=== PATIENT | male | born 1950 | race Caucasian/White ===

== ENCOUNTER 2023-06-12 09:11 | Day surgery (SDC) | payer MEDICARE, OTHER ==
--- NOTE | 2023-06-12 09:22 | HP ---
DATE OF SURGERY: 06/12/2023 HISTORY OF PRESENT ILLNESS: The patient is a 73-year-old with polyps in need of follow up screening colonoscopy. Family history negative for colon cancer. No bloody stools. PAST MEDICAL HISTORY: Macular degeneration. Hypertension. Asbestosis in the past. PAST SURGICAL HISTORY: Tonsillectomy. Skin cancer removed. Craniotomy for meningioma. Colonoscopy. Dupuytren's contracture. MEDICATIONS: Losartan/hydrochlorothiazide, cetirizine, atorvastatin, amlodipine. ALLERGIES: NKDA. FAMILY HISTORY: Negative for colon cancer. SOCIAL HISTORY: No smoking. Occasional alcohol use. REVIEW OF SYSTEMS: Fourteen systems reviewed. No chest pain or palpitations. Other systems negative or noncontributory as above and per preadmission questionnaire. PHYSICAL EXAMINATION: Height 6'4". BMI 32. GENERAL: No acute distress. HEENT: Sclerae nonicteric. EOMI. Oral mucous membranes moist. NECK: No JVD. CHEST: Equal excursion, nonlabored breathing. CVS: Regular rate and rhythm. ABDOMEN: Soft. No peritoneal signs. EXTREMITIES: No significant edema. NEURO: Alert, oriented, moving extremities symmetrically. RECTAL: Deferred timed to endoscopy exam. PSYCH: Appropriate mood and affect. SKIN: Dry. IMPRESSION: History of polyps. He is in need of follow up colonoscopy scheduled on 06/12/2023. He was explained the risk of bleeding or infection, risk of bowel injury or perforation possibly requiring further procedure, risk of missed or nondiagnosis or incomplete exam possibly requiring barium enema, other studies or procedures, general risk of anesthesia or sedation, risk of bowel prep but not limited to. Will proceed with outpatient follow up colonoscopy.
[2023-06-12 09:37] VITALS: RESP 16
[2023-06-12] MEDS ORDERED: DIPRIVAN 200 MG/20 ML IV ONE ×3 (10:27→11:02)
[2023-06-12] MEDS ORDERED: Xylocaine-Mpf 2% 5 Ml Vial ONE (10:27)
[2023-06-12] MEDS: Lactated Ringers 1,000 ML IV SCH (11:18)
[2023-06-12 11:50] VITALS: BP 146/88; PULSE 71; TEMP 97.1; O2SAT 96
--- NOTE | 2023-06-13 10:02 | OP ---
SURGERY DATE/TIME: 06/12/2023 1045 PREOPERATIVE DIAGNOSIS: History of polyps. POSTOPERATIVE DIAGNOSES: 1) Large pedunculated polyp on a stalk proximal sigmoid colon versus distal descending. 2) Polyps transverse colon and rectum. PROCEDURES: 1) Colonoscopy to terminal ileum. 2) Retrograde ileoscopy. 3) Hot snare polypectomy of approximately 1.5 to 2 cm polyp proximal sigmoid colon versus distal descending colon. 4) Hot snare polypectomy transverse colon polyp. 5) Hot biopsy polypectomy two additional transverse colon polyps. 6) Hot biopsy polypectomy small rectal polyp. 7) Ink spot tattooing of approximately 1.5 to 2 cm proximal sigmoid versus distal descending colon polyp removed with snare polypectomy. 8) Prep overall was fair. 9) ASA Class II. 10) Withdrawal time approximately 13 minutes. SURGEON: Dr. Yordy Williamson. ANESTHESIA: MAC. ESTIMATED BLOOD LOSS: Minimal. INDICATIONS: As noted above. DESCRIPTION OF PROCEDURE AND FINDINGS: The patient is taken to the endoscopy room. MAC anesthesia induced. After official time out and no disagreement with planned procedure, digital rectal exam did not reveal any rectal masses. He did have some mild internal hemorrhoids. Video colonoscope inserted and passed up through the tortuous sigmoid, descending, transverse and ascending colon around to the cecum. Appendiceal orifice and ileocecal valve well visualized. The scope passed up the terminal ileum. Retrograde ileoscopy performed which was grossly unremarkable. The scope is carefully withdrawn over the next 13 minutes. ASA Class III. Polyp in the transverse colon removed with hot snare polypectomy. Two additional small early polyps versus hyperplastic lesion removed with hot biopsy forceps. Good hemostasis was noted. It was 1.5 to less than 2 cm sigmoid polyp fortunately was on a long stalk. It was grasped at the base of the polyp on the stalk and hot snare polypectomy removed. Ink spot tattooing of 1.5 cc in a couple different locations was injected at the base to aubrey the location given the size. The polyp was removed and passed off. Otherwise the scope was carefully removed. Small polyp in the rectum was removed with hot biopsy polypectomy. Good hemostasis noted. No signs of any other large polyps, masses or obstructing lesion. He did have diverticulosis in the left colon. There were no immediate complications. Findings discussed with the family out in the waiting area.
== END 2023-06-12 12:05 | disposition home or self-care (01) ==
LOC: SDC 09:11
PROVIDERS: ATTEND Surgery
DX: Z09 Encounter for follow-up examination after completed treatment for conditions other than malignant neoplasm (principal); Z86.010 Personal history of colon polyps; Z85.828 Personal history of other malignant neoplasm of skin; K64.8 Other hemorrhoids; D12.7 Benign neoplasm of rectosigmoid junction; D12.5 Benign neoplasm of sigmoid colon; D12.3 Benign neoplasm of transverse colon
CPT/HCPCS: 99100; J2704

== ENCOUNTER 2023-06-19 10:02 | Day surgery (SDC) | payer MEDICARE, OTHER ==
--- NOTE | 2023-06-19 08:24 | HP ---
DATE OF SURGERY: 06/19/2023 HISTORY OF PRESENT ILLNESS: The patient is a 73-year-old who had some polyps, had colonoscopy. He had a large polyp removed in the past. He also has an enlarging chest lesion now in need of excision. PAST MEDICAL HISTORY: Macular degeneration, hypertension, asbestosis, chronic lung disease. PAST SURGICAL HISTORY: Tonsillectomy. Skin cancer removed in the past. He had Dupuytren's contracture in the past. Craniotomy for meningioma. Colonoscopy. MEDICATIONS: Losartan, PreserVision, cetirizine, atorvastatin, amlodipine. ALLERGIES: NKDA. FAMILY HISTORY: Negative in regards to this problem. SOCIAL HISTORY: No smoking, occasional alcohol use. REVIEW OF SYSTEMS: Fourteen systems reviewed. No chest pain or palpitations. Other systems negative or noncontributory as above and per preadmission questionnaire. PHYSICAL EXAMINATION: Height 6'4". BMI 32. GENERAL: No acute distress. HEENT: Sclerae nonicteric. EOMI. Oral mucous membranes moist. NECK: No JVD. CHEST: Equal excursion, nonlabored breathing. CVS: Regular rate and rhythm. ABDOMEN: Soft. EXTREMITIES: No significant edema. NEURO: Alert, oriented, moving extremities symmetrically. PSYCH: Appropriate mood and affect. SKIN: On chest skin had a very large lesion of indeterminate behavior. IMPRESSION: Enlarging chest lesion of indeterminate behavior needs excision. Risks and benefits explained in detail including but not limited to bleeding or infection, risk of hematoma or seroma, aches, pains, burning or numbness, risk of involved margins should malignancy be found on final path possibly requiring other procedures. Risk of anesthesia, deep venous thrombosis, pulmonary embolism, or pneumonia but not limited to, consent obtained. Will proceed with outpatient excision and biopsy of chest lesion of indeterminate behavior.
[~2023-06-19 10:02] MED LIST: CEFAZOLIN 2 GM-D5W BAG** 2 GM/50 ML ML IV ONE; CEFAZOLIN 2 GM-D5W BAG** 2 GM/50 ML ML IV SCH; Lactated Ringers 1,000 ML IV ONE; Lactated Ringers 1,000 ML IV SCH; Sensorcaine 0.25% 10 ML ONE
[2023-06-19 10:25] VITALS: RESP 18
[2023-06-19 10:28] LABS: Hematocrit 41.3 % (42-50); Hemoglobin 14.5 g/dL (12.5-18.0); Mean Cell Volume 90.2 fL (78-100); Mean Corpuscular Hemoglobin 31.7 pg (26-32); Mean Corpuscular Hgb Concent. 35.1 g/dL (32-36); Mean Platelet Volume 9.1 fL (7.5-11.0); Platelet Count 244 x10^3/uL (150-450); Red Blood Count 4.58 x10^6/uL (4.1-5.6); Red Cell Distribution Width 11.9 % (11.5-14.0); White Blood Count 7.3 x10^3/uL (4.0-10.5)
[2023-06-19 10:42] LABS: ALBUMIN 4.3 g/dL (3.5-5.0); ALKALINE PHOSPHATASE 94 U/L (38-126); ANION GAP 9.6 MEQ/L (5-15); BLOOD UREA NITROGEN 11 mg/dL (9-20); CHLORIDE 104 mmol/L (98-107); Calcium 8.6 mg/dL (8.4-10.2); Carbon Dioxide 29 mmol/L (22-30); EST GLOMERULAR FILTRATION RATE > 60.0 ML/MIN; Glucose 110 mg/dL (74-106); Potassium 3.9 mmol/L (3.5-5.1); SGOT/AST 26 U/L (17-59); SGPT/ALT 27 U/L (0-50); SODIUM 138 mmol/L (137-145)
[2023-06-19] MEDS ORDERED: Zofran 4 MG/2 ML VIAL ONE (12:21)
[2023-06-19] MEDS ORDERED: Xylocaine-Mpf 2% 5 Ml Vial ONE (12:21)
[2023-06-19] MEDS ORDERED: SUBLIMAZE 100 MCG/2 ML ONE (12:21)
[2023-06-19] MEDS ORDERED: TORAdol 30 mg Injection ONE (12:21)
[2023-06-19] MEDS ORDERED: Zemuron 100 MG/10 ML ONE (12:21)
[2023-06-19] MEDS ORDERED: Decadron 4 MG INJ ONE (12:21)
[2023-06-19] MEDS ORDERED: BRIDION 200MG/2ML IV ONE (12:21)
[2023-06-19] MEDS ORDERED: DIPRIVAN 200 MG/20 ML IV ONE (12:21)
[2023-06-19] MEDS ORDERED: Ephedrine Sulfate 50 MG/ML ONE (12:42)
[2023-06-19] MEDS ORDERED: Sensorcaine 0.25% 10 ML ONE (12:46)
[2023-06-19] MEDS ORDERED: Triple Antibiotic Ointment ONE (13:17)
[2023-06-19 14:30] VITALS: TEMP 96.7
[2023-06-19 14:44] VITALS: O2SAT 93
[2023-06-19] MEDS ORDERED: ULTRAM 50 MG ONE (14:52)
[2023-06-19] MEDS ORDERED: ULTRAM 50 MG PO ONE (14:53)
[2023-06-19 14:59] VITALS: BP 176/86; PULSE 77
--- NOTE | 2023-06-20 10:44 | OP ---
SURGERY DATE/TIME: 06/19/2023 1218 PREOPERATIVE DIAGNOSES: 1) Nonhealing lesion of indeterminate behavior on chest. 2) Enlarging lesions left eyelid and right upper face periorbital area. 3) Persistent nodule right cheek. POSTOPERATIVE DIAGNOSES: 1) Nonhealing lesion of indeterminate behavior on chest. 2) Enlarging lesions left eyelid and right upper face periorbital area. 3) Persistent nodule right cheek. 4) Path pending. PROCEDURES: 1) Excisional biopsy of enlarging chest lesion of indeterminate behavior 10 cm with advancement flap closure. 2) Excisional biopsy less than 0.5 cm lesion left upper eyelid and suture closure. 3) Excisional biopsy right face lesion periorbital area approximately 3 mm with suture closure. 4) Excisional biopsy question ruptured cheek cyst or nodule approximately 1 cm with closure. SURGEON: Dr. Yordy Williamson. ANESTHESIA: General. ESTIMATED BLOOD LOSS: Minimal. INDICATIONS: As noted above. Risks and benefits explained in detail and not limited to and consent obtained. The site had been confirmed and marked in the preoperative holding area. DESCRIPTION OF PROCEDURE AND FINDINGS: The patient is taken to the operating room. General anesthesia induced. He is prepped and draped in the usual sterile fashion. After official time out and no disagreement with planned procedure, starting with the eyelid first sharp excision of the exophytic lesion on the upper eyelid was accomplished less than 5 mm in size closed with 5-0 Prolene this was repeated on the lesion that was on the right face and periorbital area and carefully excised this one measured about 3 mm with 5-0 Prolene. The area on the right cheek question of cyst is carefully excised in spindle-shaped fashion and was 1 cm in size with margins. After the eyelid lesion in the right face periorbital lesion was excised and closed with 5-0 Prolene and then excision in spindle-shaped fashion and question of nodule or cyst in the right cheek was then excised and closed with 5-0 Prolene. Good hemostasis noted. A different set up was then used for the chest. Spindle-shaped fashion around this 10 to 20 cm scar almost acute reaction that the patient said first started out as a cyst initially. Carefully marking spindle-shaped down to normal appearing skin carefully excised down to normal appearing fascia underneath. It was around 10 cm in size and passed off for pathology. The flaps were undermined on either side and then and advanced back to the midline with interrupted 3-0 and 2-0 Vicryl in deep and superficial subcu. Skin closed with 4-0 Vicryl interrupted 0 Prolene used to reinforce the area given the location and tightness on the chest. Steri-Strips and sterile dressing applied. The patient tolerated the procedure well. There were no immediate complications. Findings discussed with the family out in the waiting area. Again, the chest lesion is about 10 cm, the exophytic eye lesion was less than 5 mm, the right face lesion was 3 mm and the ruptured cyst site on the cheek was approximately 1 cm with margins. The 10 cm nonhealing lesion was closed with local advancement flap closure.
== END 2023-06-19 15:20 | disposition home or self-care (01) ==
LOC: SDC 10:02
PROVIDERS: ATTEND Surgery
DX: L72.0 Epidermal cyst (principal); L82.1 Other seborrheic keratosis; L91.8 Other hypertrophic disorders of the skin; L90.5 Scar conditions and fibrosis of skin
CPT/HCPCS: 36415; 80053; 85027; 93005; 99100; J0690; J1100; J1885; J2405; J2704; J3010; A9270-GY